=== PATIENT | female | born 1960 | race Caucasian/White ===

== ENCOUNTER 2019-07-25 14:32 | Outpatient (CLI) | payer BC ==
--- NOTE | 2019-07-25 14:59 | RAD ---
Left hand 3 views: 07/25/2019 COMPARISON: None HISTORY: Joint pain FINDINGS: No fracture or dislocation. No radiopaque foreign body or subcutaneous gas. IMPRESSION: No acute findings.
--- NOTE | 2019-07-25 15:05 | RAD ---
XR Hand Rt 3 View STANDARD HISTORY: Joint pain in the right hand FINDINGS: No fracture, bony destruction or dislocation is identified. No radiopaque body or subcutaneous gas is seen. IMPRESSION: No acute findings.
== END 2019-07-25 14:33 | disposition home or self-care (01) ==
LOC: RAD 14:32
PROVIDERS: ATTEND Nurse Practitioner Family
DX: M25.542 Pain in joints of left hand (principal); M25.541 Pain in joints of right hand

== ENCOUNTER 2019-10-23 12:40 | Outpatient (CLI) | payer BC ==
--- NOTE | 2019-10-23 12:53 | RAD ---
XR Chest Pa Lat @ [facility] HISTORY: Dyspnea COMPARISON: 03/01/2011 FINDINGS: The heart size is normal. Right-sided Port-A-Cath again seen. Postoperative changes in the left axilla are redemonstrated. The lungs are well expanded without focal areas of consolidation, pneumothorax or pleural effusions. IMPRESSION: No radiographic evidence of acute cardiopulmonary process.
== END 2019-10-23 12:41 | disposition home or self-care (01) ==
LOC: RAD 12:40
PROVIDERS: ATTEND Internal Medicine Critical Care Medicine
DX: R06.00 Dyspnea, unspecified (principal)
CPT/HCPCS: 71046

== ENCOUNTER 2020-10-24 12:15 | Outpatient (CLI) | payer BC | END 2020-10-24 12:16 | disposition home or self-care (01) | LOC: BICMRI 12:15 | PROVIDERS: ATTEND Family Medicine | DX: M54.16 Radiculopathy, lumbar region (principal) | CPT/HCPCS: 72148 ==

== ENCOUNTER 2020-11-26 09:31 | Outpatient (CLI) | payer BC ==
[2020-11-26] MEDS ORDERED: Magnevist 469MG/ML 20 ML VIAL ONE (10:15)
== END 2020-11-26 09:32 | disposition home or self-care (01) ==
LOC: BICMRI 09:31
PROVIDERS: ATTEND Specialist
DX: S22.070A Wedge compression fracture of T9-T10 vertebra, initial encounter for closed fracture (principal); M51.24 Other intervertebral disc displacement, thoracic region; M43.9 Deforming dorsopathy, unspecified; R60.0 Localized edema
CPT/HCPCS: 72157

== ENCOUNTER 2020-12-30 08:08 | Outpatient (CLI) | payer BC ==
[2020-12-30] MEDS ORDERED: Magnevist 469MG/ML 20 ML VIAL ONE (09:19)
== END 2020-12-30 08:09 | disposition home or self-care (01) ==
LOC: BICMRI 08:08
PROVIDERS: ATTEND Neurological Surgery
DX: M47.12 Other spondylosis with myelopathy, cervical region (principal); M50.10 Cervical disc disorder with radiculopathy, unspecified cervical region; M54.6 Pain in thoracic spine; M43.8X4 Other specified deforming dorsopathies, thoracic region
CPT/HCPCS: 72072; 72156; A9579

== ENCOUNTER 2021-04-28 | Emergency (ER) | payer MEDICARE | END 2021-04-28 15:32 | disposition home or self-care (01) ==

== ENCOUNTER 2021-07-04 19:39 | Observation (INO) | payer MEDICARE ==
[2021-07-04 21:00] LABS: #Basophils 0.1 thou/uL (0.0-0.2); #Eosinphils 0.1 thou/uL (0.0-0.7); #Lymphocytes 0.3 thou/uL (1.20-3.40); #Monocytes 0.1 thou/uL (0.11-0.59); #Neutrophils 3.4 thou/uL (1.40-6.50); %Basophils 1.3 % (0.0-1.0); %Lymphocytes 8.4 % (21.0-51.0); %Monocytes 1.3 % (0.0-10.0); Hemoglobin 14.1 g/dL (12.0-16.0); Mean Corpuscular HGB CONC 34.6 g/dL (32.0-36.0); Mean Corpuscular Hemoglobin 34.1 pg (27.0-31.0); Mean Corpuscular Volume 98.3 fL (78.0-98.0); Mean Platelet Volume 7.6 fL (7.4-10.4); Platelet Count 156 thou/uL (130-400); RBC Distribution Width 12.9 % (11.5-14.5); Red Blood Cell (RBC) Count 4.14 mill/uL (4.20-5.40)
[2021-07-04 21:22] LABS: ALT (SGPT) 17 U/L (8-55); AST (SGOT) 26 U/L (5-34); Albumin 3.9 g/dL (3.5-5.0); Alkaline Phosphatase 86 U/L (40-110); Anion Gap 16 mmol/L (10-20); BUN (Urea Nitrogen) 11 mg/dL (9.8-20.1); Bilirubin, Total 0.7 mg/dL (0.2-1.2); Calc. Creatinine Clearance 0 mL/min (70-130); Calcium 9.8 mg/dL (7.8-10.44); Carbon Dioxide 24 mmol/L (22-29); Chloride 99 mmol/L (98-107); Globulin 3.5 g/dL (2.4-3.5); Glucose 127 mg/dL (70-105); Potassium 4.1 mmol/L (3.5-5.1); Protein, Total 7.4 g/dL (6.0-8.3); Sodium 135 mmol/L (136-145)
[2021-07-04] MEDS ORDERED: Ondansetron PF 4 MG/2 ML Vial ONE (21:46)
[2021-07-04 23:30] LABS: Bacteria/HPF None Seen HPF (None Seen); Bilirubin Negative (Negative); Blood, Urine 1+ (Negative); Clarity Clear (Clear); Glucose, Urine (Dipstick) Normal (Negative); Ketone, Urine 10 mg/dL (Negative); Leukocyte Negative Leu/uL (Negative); Nitrite Negative (Negative); Protein, Urine (Dipstick) 10 mg/dL (Neg-Trace); Squamous Epithelial 0-3 HPF (0-3); Urobilinogen Normal mg/dL (Less than 2); WBC/HPF 0-3 HPF (0-3); pH, Urine 7.5 (5.0-9.0)
[2021-07-04] MEDS ORDERED: Aspirin Chewable 81 MG TAB ONE ×2 (23:53→23:54)
[2021-07-05] MEDS ORDERED: Acetaminophen 325 MG TAB PO PRN (01:23)
[2021-07-05] MEDS ORDERED: Ondansetron ODT 4 MG TAB PO PRN (01:23)
[2021-07-05] MEDS ORDERED: Ondansetron PF 4 MG/2 ML Vial IVP PRN (01:23)
[2021-07-05] MEDS ORDERED: Acetaminophen 650 MG Suppository PR PRN (01:23)
[2021-07-05] MEDS ORDERED: hydrALAZINE 20 MG/ML VIAL SLOW IVP PRN ×2 (01:26→09:30)
[2021-07-05 02:18] VITALS: BMI 22.0
[2021-07-05 07:10] LABS: #Lymphocytes 0.5 thou/uL (1.20-3.40); #Monocytes 0.1 thou/uL (0.11-0.59); #Neutrophils 2.9 thou/uL (1.40-6.50); %Eosinophils 1.2 % (0.0-10.0); %Lymphocytes 15.5 % (21.0-51.0); %Monocytes 1.3 % (0.0-10.0); Hemoglobin 12.9 g/dL (12.0-16.0); Mean Corpuscular HGB CONC 35.2 g/dL (32.0-36.0); Mean Corpuscular Hemoglobin 34.6 pg (27.0-31.0); Mean Corpuscular Volume 98.3 fL (78.0-98.0); Mean Platelet Volume 7.3 fL (7.4-10.4); Platelet Count 172 thou/uL (130-400); RBC Distribution Width 12.9 % (11.5-14.5); Red Blood Cell (RBC) Count 3.73 mill/uL (4.20-5.40); White Blood Cell (WBC) Count 3.5 thou/uL (4.8-10.8)
[2021-07-05 07:16] LABS: Anion Gap 5 mmol/L (10-20); BUN (Urea Nitrogen) 12 mg/dL (9.8-20.1); Calc. Creatinine Clearance 74 mL/min (70-130); Calcium 9.4 mg/dL (7.8-10.44); Carbon Dioxide 27 mmol/L (22-29); Cardiac Risk 3.6 (Less than 4.5); Chloride 103 mmol/L (98-107); Cholesterol 175 mg/dl (< 200 Desired); Glucose 116 mg/dL (70-105); HDL Cholesterol 49 mg/dL (>60 Neg Risk); LDL Cholesterol, Calculated 109 mg/dL; Potassium 4.3 mmol/L (3.5-5.1); Sodium 131 mmol/L (136-145); Triglycerides 83 mg/dL (Less than 150)
[2021-07-05] MEDS ORDERED: FLU VACC QS2021-22(6MOS UP)/PF 60 MCG/0.5 ML SYRINGE IM ONE (09:00)
[2021-07-05] MEDS ORDERED: Prevnar 13-Val Conj/PF 0.5 ML SYRINGE IM ONE (09:00)
[2021-07-05] MEDS ORDERED: Chlorhexidine Gluconate 15 ML UDCUP SSP PRN (09:26)
[2021-07-05] MEDS ORDERED: Artificial Tear Sol 15 ML BOT EA EYE PRN (09:28)
[2021-07-05] MEDS ORDERED: Bisacodyl 5 MG TAB PO PRN (09:28)
[2021-07-05] MEDS ORDERED: GUAIFENESIN SF SOLN 200 MG/10 ML UDCUP PO PRN (09:28)
[2021-07-05] MEDS ORDERED: Sodium Chloride 0.65% Nasal 44 ML BOT EA NARE PRN (09:28)
[2021-07-05] MEDS ORDERED: Cepastat Lozenges 1 LOZ PO PRN (09:28)
[2021-07-05] MEDS ORDERED: Senokot S 8.6-50 MG TAB PO PRN (09:28)
[2021-07-05] MEDS ORDERED: Hydrocerin (Eucerin) Cream 120 gm Jar TOP PRN (09:28)
[2021-07-05] MEDS ORDERED: Bisacodyl 10 MG SUPP PR PRN (09:28)
[2021-07-05] MEDS ORDERED: Loratadine 10 MG TAB PO PRN (09:28)
[2021-07-05] MEDS ORDERED: Loperamide HCl 2 MG CAP PO PRN (09:28)
[2021-07-05] MEDS ORDERED: Calcium Carbonate 500 MG ChewTAB PO PRN (09:28)
[2021-07-05] MEDS ORDERED: HYDROcodone/Acetaminophen 10/325 mg Tablet PO PRN (09:29)
[2021-07-05] MEDS: Aspirin 81 mg Enteric Coated Tablet PO SCH (10:13)
[2021-07-05] MEDS: Enoxaparin Sodium 40 MG/0.4 ML SYRINGE SC SCH (10:13)
[2021-07-05] MEDS ORDERED: Magnevist 469MG/ML 20 ML VIAL ONE (10:56)
[2021-07-05] MEDS: Cyclobenzaprine 10 MG TAB PO SCH ×3 (14:27→19:59)
[2021-07-05] MEDS: Gabapentin 300 MG CAP PO SCH ×2 (14:28→19:55)
[2021-07-05] MEDS ORDERED: CEVIMELINE HCL 30 MG PO SCH (15:00)
[2021-07-05 16:49] LABS: SARS-CoV-2 PCR by NAA Not Detected (NotDetected)
[2021-07-05] MEDS: Famotidine 20 MG TAB PO SCH (19:57)
[2021-07-05] MEDS: Propranolol 10 MG TAB PO SCH (19:58)
[2021-07-05] MEDS: Calcium Carbonate + Vit D 250 MG TAB PO SCH (19:59)
[2021-07-05] MEDS ORDERED: Atorvastatin Calcium 20 MG TAB PO SCH (21:00)
[2021-07-06] MEDS: Famotidine 20 MG TAB PO SCH (08:11)
[2021-07-06] MEDS: Aspirin 81 mg Enteric Coated Tablet PO SCH (08:11)
[2021-07-06] MEDS: Cyclobenzaprine 10 MG TAB PO SCH (08:11)
[2021-07-06] MEDS: Propranolol 10 MG TAB PO SCH (08:12)
[2021-07-06] MEDS: Gabapentin 300 MG CAP PO SCH (08:12)
[2021-07-06] MEDS: Calcium Carbonate + Vit D 250 MG TAB PO SCH (08:12)
[2021-07-06] MEDS: Enoxaparin Sodium 40 MG/0.4 ML SYRINGE SC SCH (08:14)
[2021-07-06] MEDS ORDERED: DULoxetine 60 MG CAP PO SCH (09:00)
[2021-07-06 11:42] VITALS: BP 152/88; TEMP 98
== END 2021-07-06 11:51 | disposition home or self-care (01) ==
LOC: ERS 19:39 → INTOOBSV 07-05 00:02 → 3SE 07-05 00:02
PROVIDERS: ADMIT Student in an Organized Health Care Education/Training Program; ATTEND Internal Medicine
DX: R41.82 Altered mental status, unspecified (principal); R47.01 Aphasia; E87.1 Hypo-osmolality and hyponatremia; I07.1 Rheumatic tricuspid insufficiency; C50.919 Malignant neoplasm of unspecified site of unspecified female breast; C79.52 Secondary malignant neoplasm of bone marrow; C79.2 Secondary malignant neoplasm of skin; C79.51 Secondary malignant neoplasm of bone; G89.3 Neoplasm related pain (acute) (chronic); D70.1 Agranulocytosis secondary to cancer chemotherapy; T45.1X5A Adverse effect of antineoplastic and immunosuppressive drugs, initial encounter; F32.A Depression, unspecified; F41.9 Anxiety disorder, unspecified; E78.5 Hyperlipidemia, unspecified; Z20.822 Contact with and (suspected) exposure to COVID-19; Z79.82 Long term (current) use of aspirin; Z79.899 Other long term (current) drug therapy; Z90.710 Acquired absence of both cervix and uterus; Z90.722 Acquired absence of ovaries, bilateral
CPT/HCPCS: 70450; 70553; 71045; 80048; 80053; 80061; 84484; 85025 ×2; 93005; 93306; 93880; 95712; 95816; 95819; 95957; 96372 ×2; 96374; 97139 ×3; 99285; G0378 ×3; U0003; U0005; 36415; 81003; 81015; A9579; J0360; J1642; J1650; J2405

== ENCOUNTER 2022-01-21 09:14 | Observation (INO) | payer MEDICARE ==
[2022-01-21 10:34] LABS: Hemoglobin 13.2 g/dL (12.0-16.0); Mean Corpuscular HGB CONC 34.1 g/dL (32.0-36.0); Mean Corpuscular Hemoglobin 32.1 pg (27.0-31.0); Mean Platelet Volume 6.2 fL (7.4-10.4); Platelet Count 295 thou/uL (130-400); RBC Distribution Width 13.5 % (11.5-14.5); Red Blood Cell (RBC) Count 4.11 mill/uL (4.20-5.40); White Blood Cell (WBC) Count 2.9 thou/uL (4.8-10.8)
[2022-01-21 10:45] LABS: ALT (SGPT) 32 U/L (8-55); AST (SGOT) 66 U/L (5-34); Albumin 3.6 g/dL (3.5-5.0); Alkaline Phosphatase 153 U/L (40-110); Anion Gap 12 mmol/L (10-20); BUN (Urea Nitrogen) 10 mg/dL (9.8-20.1); Bilirubin, Total 0.5 mg/dL (0.2-1.2); Calc. Creatinine Clearance 0 mL/min (70-130); Carbon Dioxide 23 mmol/L (22-29); Chloride 102 mmol/L (98-107); Globulin 3.5 g/dL (2.4-3.5); Glucose 89 mg/dL (70-105); Magnesium 2.1 mg/dL (1.6-2.6); Potassium 4.2 mmol/L (3.5-5.1); Protein, Total 7.1 g/dL (6.0-8.3); Sodium 133 mmol/L (136-145)
[2022-01-21 11:02] LABS: Band 10 % (5-11); Lymphocytes 20 % (21-51); MDiff Complete? YES; Metamyelocyte 1 % (0-0); Monocytes 9 % (0-10); Neutrophil 54 % (42-75); Platelet Morphology Comment Appears Adequate; Polychromasia SLIGHT = 2-3 cells (100X) (0-2/hpf); Reactive Lymphocytes 4 % (0-10)
[2022-01-21 11:52] LABS: Bilirubin Negative (Negative); Blood, Urine Negative (Negative); Clarity Clear (Clear); Glucose, Urine (Dipstick) Normal (Negative); Ketone, Urine Negative (Negative); Leukocyte Negative Leu/uL (Negative); Nitrite Negative (Negative); Protein, Urine (Dipstick) Negative (Neg-Trace); Specific Gravity, Urine 1.022 (1.002-1.036); Urobilinogen Normal mg/dL (Less than 2)
[2022-01-21 13:38] LABS: INR-International Normal Ratio 1.1; Prothrombin Time 14.1 sec (12.0-14.7)
[2022-01-21 13:39] LABS: PTT 36.9 sec (22.9-36.1)
[2022-01-21] MEDS ORDERED: HYDROmorphone 0.5 MG/0.5 ML SYRINGE ONE (16:52)
[2022-01-21] MEDS ORDERED: Ondansetron PF 4 MG/2 ML Vial IVP PRN (22:00)
[2022-01-21] MEDS ORDERED: Ondansetron ODT 4 MG TAB SL PRN (22:00)
[2022-01-21] MEDS ORDERED: Acetaminophen 325 MG TAB PO PRN (22:00)
[2022-01-21] MEDS ORDERED: Morphine 4 MG/ML VIAL SLOW IVP PRN (22:14)
[2022-01-21] MEDS ORDERED: Acetaminophen 650 MG Suppository PR PRN (22:15)
[2022-01-21 22:20] VITALS: BMI 21.7
[2022-01-22] MEDS ORDERED: Dicyclomine 20 MG TAB PO PRN (04:17)
[2022-01-22 04:27] LABS: Anion Gap 12 mmol/L (10-20); BUN (Urea Nitrogen) 9 mg/dL (9.8-20.1); Calc. Creatinine Clearance 70 mL/min (70-130); Calcium 9.4 mg/dL (7.8-10.44); Carbon Dioxide 28 mmol/L (22-29); Chloride 98 mmol/L (98-107); Glucose 103 mg/dL (70-105); Potassium 3.8 mmol/L (3.5-5.1); Sodium 134 mmol/L (136-145)
[2022-01-22 04:57] LABS: Band 14 % (5-11); Lymphocytes 8 % (21-51); MDiff Complete? YES; Mean Corpuscular HGB CONC 33.6 g/dL (32.0-36.0); Mean Corpuscular Hemoglobin 31.7 pg (27.0-31.0); Mean Corpuscular Volume 94.2 fL (78.0-98.0); Mean Platelet Volume 6.3 fL (7.4-10.4); Metamyelocyte 2 % (0-0); Neutrophil 76 % (42-75); Platelet Count 251 thou/uL (130-400); Platelet Morphology Comment Appears Adequate; RBC Distribution Width 13.6 % (11.5-14.5); RBC Morphology Normal; White Blood Cell (WBC) Count 2.1 thou/uL (4.8-10.8)
[2022-01-22] MEDS ORDERED: Enoxaparin Sodium 40 MG/0.4 ML SYRINGE SC SCH (09:00)
[2022-01-22] MEDS ORDERED: DULoxetine 60 MG CAP PO SCH (09:00)
[2022-01-22] MEDS ORDERED: buPROPion 75 MG TAB PO SCH (09:00)
[2022-01-22] MEDS ORDERED: CEVIMELINE HCL 30 MG PO SCH (09:00)
[2022-01-22] MEDS ORDERED: Aspirin 81 mg Enteric Coated Tablet PO SCH (09:00)
[2022-01-22] MEDS ORDERED: Propranolol 10 MG TAB PO SCH (09:00)
[2022-01-22] MEDS ORDERED: Loperamide HCl 2 MG CAP PO SCH (09:00)
[2022-01-22] MEDS ORDERED: HYDROcodone/Acetaminophen 10/325 mg Tablet PO SCH (09:00)
[2022-01-22] MEDS: Cyclobenzaprine 10 MG TAB PO SCH ×2 (09:30→15:56)
[2022-01-22] MEDS: Gabapentin 300 MG CAP PO SCH ×2 (09:30→15:56)
[2022-01-22] MEDS: METHadone HCl 10 MG TAB PO SCH ×2 (09:50→15:55)
[2022-01-22 11:45] LABS: SARS-CoV-2 PCR by NAA Not Detected (NotDetected)
[2022-01-22 17:43] VITALS: BP 92/52; TEMP 98.2
== END 2022-01-22 18:15 | disposition home or self-care (01) ==
LOC: ERS 09:14 → 2NO 17:59
PROVIDERS: ADMIT Internal Medicine; ATTEND Internal Medicine
DX: S24.104A Unspecified injury at T11-T12 level of thoracic spinal cord, initial encounter (principal); S22.081A Stable burst fracture of T11-T12 vertebra, initial encounter for closed fracture; C50.912 Malignant neoplasm of unspecified site of left female breast; C78.7 Secondary malignant neoplasm of liver and intrahepatic bile duct; C79.51 Secondary malignant neoplasm of bone; E87.1 Hypo-osmolality and hyponatremia; D72.819 Decreased white blood cell count, unspecified; I10 Essential (primary) hypertension; M43.12 Spondylolisthesis, cervical region; M48.02 Spinal stenosis, cervical region; R91.1 Solitary pulmonary nodule; M84.48XA Pathological fracture, other site, initial encounter for fracture; M48.061 Spinal stenosis, lumbar region without neurogenic claudication; M51.36 Other intervertebral disc degeneration, lumbar region; M47.816 Spondylosis without myelopathy or radiculopathy, lumbar region; Z79.82 Long term (current) use of aspirin; Z79.891 Long term (current) use of opiate analgesic; Z79.899 Other long term (current) drug therapy; Z98.890 Other specified postprocedural states; Z20.822 Contact with and (suspected) exposure to COVID-19; W18.30XA Fall on same level, unspecified, initial encounter; Y92.000 Kitchen of unspecified non-institutional (private) residence as the place of occurrence of the external cause
CPT/HCPCS: 70450; 71260; 72125; 72157; 72158; 74177; 80048; 80053; 81003; 83735; 84484; 85025 ×2; 85610; 85730; 86900; 86901; 93005; 97116; 97139 ×3; 97530; U0003; U0005; 36415; 96372; G0378; G0390; J1170; J1650

== ENCOUNTER 2022-02-23 12:38 | Inpatient (IN) | payer MEDICARE ==
[2022-02-23 14:00] LABS: Hemoglobin 10.6 g/dL (12.0-16.0); Mean Corpuscular HGB CONC 34.6 g/dL (32.0-36.0); Mean Corpuscular Hemoglobin 31.9 pg (27.0-31.0); Mean Corpuscular Volume 92.1 fL (78.0-98.0); Mean Platelet Volume 7.4 fL (7.4-10.4); Platelet Count 208 thou/uL (130-400); RBC Distribution Width 14.7 % (11.5-14.5); Red Blood Cell (RBC) Count 3.34 mill/uL (4.20-5.40); White Blood Cell (WBC) Count 0.9 thou/uL (4.8-10.8)
[2022-02-23 14:25] LABS: Band 1 % (5-11); Lymphocytes 77 % (21-51); MDiff Complete? YES; Monocytes 16 % (0-10); Neutrophil 4 % (42-75); Ovalocytes SLIGHT = 2-5 cells (100X) (0-1/hpf); Platelet Morphology Comment Appears Adequate; Polychromasia SLIGHT = 2-3 cells (100X) (0-2/hpf)
[2022-02-23 15:15] LABS: Bilirubin Negative (Negative); Blood, Urine Negative (Negative); Clarity Clear (Clear); Glucose, Urine (Dipstick) Normal (Negative); Ketone, Urine Negative (Negative); Leukocyte Negative Leu/uL (Negative); Nitrite Negative (Negative); Protein, Urine (Dipstick) Negative (Neg-Trace); Specific Gravity, Urine 1.003 (1.002-1.036); Urobilinogen Normal mg/dL (Less than 2); pH, Urine 7.5 (5.0-9.0)
[2022-02-23] MEDS ORDERED: Cefepime 2 GM VIAL ONE (15:33)
[2022-02-23] MEDS ORDERED: Vancomycin 1 GM/200 ML BAG ONE (16:21)
[2022-02-23 16:28] LABS: ALT (SGPT) 39 U/L (8-55); AST (SGOT) 78 U/L (5-34); Albumin 3.3 g/dL (3.5-5.0); Alkaline Phosphatase 122 U/L (40-110); Anion Gap 13 mmol/L (10-20); BUN (Urea Nitrogen) 6 mg/dL (9.8-20.1); Bilirubin, Total 1.3 mg/dL (0.2-1.2); Calc. Creatinine Clearance 0 mL/min (70-130); Calcium 9.2 mg/dL (7.8-10.44); Carbon Dioxide 25 mmol/L (22-29); Chloride 98 mmol/L (98-107); Globulin 3.5 g/dL (2.4-3.5); Glucose 103 mg/dL (70-105); Potassium 3.4 mmol/L (3.5-5.1); Protein, Total 6.8 g/dL (6.0-8.3); Sodium 133 mmol/L (136-145)
[2022-02-23] MEDS ORDERED: Potassium Chloride 40 MEQ in Premix Bag 1 BAG IVPB SCH (17:30)
[2022-02-23] MEDS ORDERED: HYDROcodone/Acetaminophen 5/325 mg Tablet PO PRN ×2 (18:54→18:57)
[2022-02-23 19:11] VITALS: BMI 21.4
[2022-02-23] MEDS: Sodium Chloride 0.9% 1,000 ML IV SCH (19:53)
[2022-02-23] MEDS: Vancomycin HCl 750 MG in Sodium Chloride 0.9% 250 ML 250 ML IVPB SCH (20:53)
[2022-02-23] MEDS ORDERED: Vancomycin 1 GM in Premix Bag 1 BAG IVPB SCH (21:00)
[2022-02-23] MEDS ORDERED: Cyclobenzaprine 10 MG TAB PO SCH (22:45)
[2022-02-23] MEDS ORDERED: Gabapentin 300 MG CAP PO SCH (22:45)
[2022-02-23] MEDS ORDERED: Propranolol 10 MG TAB PO SCH (22:45)
[2022-02-23] MEDS ORDERED: METHadone HCl 10 MG TAB PO SCH (22:45)
[2022-02-24] MEDS: Cefepime 1 GM in Sodium Chloride 0.9% 100 ML IVPB SCH ×2 (03:03→15:06)
[2022-02-24 06:10] LABS: Hemoglobin 9.7 g/dL (12.0-16.0); Hypochromia SLIGHT = 6-15 cells (100X) (0-5/hpf); Lymphocytes 45 % (21-51); MDiff Complete? YES; Mean Corpuscular HGB CONC 34.5 g/dL (32.0-36.0); Mean Corpuscular Volume 92.8 fL (78.0-98.0); Monocytes 40 % (0-10); Neutrophil 15 % (42-75); Platelet Count 189 thou/uL (130-400); Platelet Morphology Comment Appears Adequate; RBC Distribution Width 14.4 % (11.5-14.5); Red Blood Cell (RBC) Count 3.04 mill/uL (4.20-5.40); White Blood Cell (WBC) Count 1.3 thou/uL (4.8-10.8)
[2022-02-24 06:16] LABS: ALT (SGPT) 33 U/L (8-55); AST (SGOT) 66 U/L (5-34); Albumin 2.8 g/dL (3.5-5.0); Alkaline Phosphatase 105 U/L (40-110); Anion Gap 11 mmol/L (10-20); BUN (Urea Nitrogen) 5 mg/dL (9.8-20.1); Bilirubin, Total 1.1 mg/dL (0.2-1.2); Calc. Creatinine Clearance 88 mL/min (70-130); Calcium 8.3 mg/dL (7.8-10.44); Carbon Dioxide 25 mmol/L (22-29); Chloride 104 mmol/L (98-107); Glucose 81 mg/dL (70-105); Potassium 3.5 mmol/L (3.5-5.1); Protein, Total 5.8 g/dL (6.0-8.3); Sodium 136 mmol/L (136-145)
[2022-02-24] MEDS: Gabapentin 300 MG CAP PO SCH ×3 (08:42→22:15)
[2022-02-24] MEDS: Propranolol 10 MG TAB PO SCH ×2 (08:43→22:17)
[2022-02-24] MEDS: Vancomycin HCl 750 MG in Sodium Chloride 0.9% 250 ML 250 ML IVPB SCH ×2 (08:43→20:59)
[2022-02-24] MEDS ORDERED: Ondansetron PF 4 MG/2 ML Vial IVP PRN (08:56)
[2022-02-24] MEDS ORDERED: GUAIFENESIN SF SOLN 200 MG/10 ML UDCUP PO PRN (08:56)
[2022-02-24] MEDS ORDERED: Zolpidem Tartrate 5 MG TAB PO PRN (08:56)
[2022-02-24] MEDS ORDERED: hydrALAZINE 20 MG/ML VIAL SLOW IVP PRN (08:56)
[2022-02-24] MEDS ORDERED: Moisturizing Cream (Eucerin) 113 GM JAR TOP PRN (08:56)
[2022-02-24] MEDS ORDERED: Cepastat Lozenges 1 LOZ PO PRN (08:56)
[2022-02-24] MEDS ORDERED: Sodium Chloride 0.65% Nasal 44 ML BOT EA NARE PRN (08:56)
[2022-02-24] MEDS ORDERED: Ondansetron ODT 4 MG TAB SL PRN (08:56)
[2022-02-24] MEDS ORDERED: Artificial Tear Sol 15 ML BOT EA EYE PRN (08:56)
[2022-02-24] MEDS ORDERED: Calcium Carbonate 500 MG ChewTAB PO PRN (08:56)
[2022-02-24] MEDS ORDERED: Loperamide HCl 2 MG CAP PO PRN (08:56)
[2022-02-24] MEDS ORDERED: Senokot S 8.6-50 MG TAB PO PRN (08:56)
[2022-02-24] MEDS ORDERED: CEVIMELINE HCL 30 MG PO SCH (09:00)
[2022-02-24] MEDS ORDERED: METHadone HCl 10 MG TAB PO SCH (09:00)
[2022-02-24] MEDS ORDERED: DULoxetine 60 MG CAP PO SCH (09:00)
[2022-02-24] MEDS ORDERED: Lorazepam 2 MG/ML VIAL SLOW IVP SCH (09:30)
[2022-02-24] MEDS: Bupropion 150 MG XL TAB PO SCH (09:51)
[2022-02-24] MEDS ORDERED: Gadobenate Dimeglumine 529 MG/1 ML (20ML VIAL) ONE (11:52)
[2022-02-24] MEDS: Sodium Chloride 0.9% 1,000 ML IV SCH ×3 (14:27→21:16)
[2022-02-24] MEDS ORDERED: Sodium Chloride 0.9% 500 ML IV SCH (15:00)
[2022-02-24] MEDS: Cyclobenzaprine 10 MG TAB PO SCH (22:14)
[2022-02-24] MEDS: Aspirin 81 mg Enteric Coated Tablet PO SCH (22:14)
[2022-02-24] MEDS: METHadone HCl 10 MG TAB PO SCH (22:16)
[2022-02-25] MEDS: METHadone HCl 10 MG TAB PO SCH ×3 (01:05→22:27)
[2022-02-25] MEDS: Aspirin 81 mg Enteric Coated Tablet PO SCH ×2 (01:12→20:00)
[2022-02-25] MEDS: Gabapentin 300 MG CAP PO SCH ×5 (01:12→22:27)
[2022-02-25] MEDS: Cyclobenzaprine 10 MG TAB PO SCH ×2 (01:12→20:00)
[2022-02-25] MEDS: Propranolol 10 MG TAB PO SCH ×3 (02:00→11:41)
[2022-02-25] MEDS: Cefepime 1 GM in Sodium Chloride 0.9% 100 ML IVPB SCH ×2 (03:53→15:48)
[2022-02-25 06:08] LABS: Hemoglobin 10.3 g/dL (12.0-16.0); Hypochromia SLIGHT = 6-15 cells (100X) (0-5/hpf); Lymphocytes 40 % (21-51); MDiff Complete? YES; Mean Corpuscular HGB CONC 34.7 g/dL (32.0-36.0); Mean Corpuscular Hemoglobin 31.8 pg (27.0-31.0); Mean Corpuscular Volume 91.6 fL (78.0-98.0); Mean Platelet Volume 6.8 fL (7.4-10.4); Monocytes 5 % (0-10); Neutrophil 15 % (42-75); Platelet Count 242 thou/uL (130-400); Platelet Morphology Comment Appears Adequate; RBC Distribution Width 14.5 % (11.5-14.5); Reactive Lymphocytes 40 % (0-10); Red Blood Cell (RBC) Count 3.22 mill/uL (4.20-5.40); White Blood Cell (WBC) Count 1.2 thou/uL (4.8-10.8)
[2022-02-25 06:11] LABS: ALT (SGPT) 34 U/L (8-55); AST (SGOT) 68 U/L (5-34); Alkaline Phosphatase 109 U/L (40-110); Anion Gap 11 mmol/L (10-20); BUN (Urea Nitrogen) 6 mg/dL (9.8-20.1); Bilirubin, Total 1.3 mg/dL (0.2-1.2); Calc. Creatinine Clearance 80 mL/min (70-130); Calcium 8.5 mg/dL (7.8-10.44); Carbon Dioxide 24 mmol/L (22-29); Chloride 102 mmol/L (98-107); Globulin 3.3 g/dL (2.4-3.5); Glucose 77 mg/dL (70-105); Magnesium 1.6 mg/dL (1.6-2.6); Phosphorus 2.9 mg/dL (2.3-4.7); Potassium 3.3 mmol/L (3.5-5.1); Protein, Total 6.3 g/dL (6.0-8.3); Sodium 134 mmol/L (136-145)
[2022-02-25] MEDS: Sodium Chloride 0.9% 1,000 ML IV SCH ×2 (06:19→15:44)
[2022-02-25 08:03] LABS: Vancomycin, Trough 10.5 ug/mL
[2022-02-25] MEDS ORDERED: Potassium Chloride 20 MEQ TAB PO SCH (09:00)
[2022-02-25] MEDS ORDERED: Potassium Chloride 20 MEQ in Premix Bag 1 BAG IVPB SCH (10:00)
[2022-02-25] MEDS: Vancomycin HCl 750 MG in Sodium Chloride 0.9% 250 ML 250 ML IVPB SCH ×2 (10:55→20:00)
[2022-02-25] MEDS: DULoxetine 60 MG CAP PO SCH ×2 (11:03→11:41)
[2022-02-25] MEDS: Bupropion 150 MG XL TAB PO SCH ×2 (11:07→11:41)
[2022-02-25] MEDS ORDERED: Morphine 2 MG/ML VIAL SLOW IVP PRN (17:18)
[2022-02-26] MEDS: Cefepime 1 GM in Sodium Chloride 0.9% 100 ML IVPB SCH (03:45)
[2022-02-26 08:55] VITALS: TEMP 98.2
[2022-02-26 09:03] VITALS: BP 151/95
[2022-02-26] MEDS: Bupropion 150 MG XL TAB PO SCH (09:13)
[2022-02-26] MEDS: Gabapentin 300 MG CAP PO SCH ×2 (09:29→09:47)
[2022-02-26] MEDS: DULoxetine 60 MG CAP PO SCH (09:29)
[2022-02-26] MEDS: METHadone HCl 10 MG TAB PO SCH (09:31)
[2022-02-26] MEDS: Propranolol 10 MG TAB PO SCH (09:32)
[2022-02-26 09:46] LABS: Vancomycin, Trough 4.6 ug/mL
[2022-02-26] MEDS: Vancomycin HCl 750 MG in Sodium Chloride 0.9% 250 ML 250 ML IVPB SCH (09:48)
[2022-02-26] MEDS: Sodium Chloride 0.9% 1,000 ML IV SCH (12:29)
== END 2022-02-26 14:15 | disposition hospice, home (50) | DRG 808 ==
LOC: ERS 12:38 → MSONC 16:33
PROVIDERS: ADMIT Internal Medicine; ATTEND Internal Medicine
DX: D70.1 Agranulocytosis secondary to cancer chemotherapy (principal); Z66 Do not resuscitate; Z51.5 Encounter for palliative care; Z20.822 Contact with and (suspected) exposure to COVID-19; G92.8 Other toxic encephalopathy; C79.51 Secondary malignant neoplasm of bone; C78.7 Secondary malignant neoplasm of liver and intrahepatic bile duct; T40.2X5A Adverse effect of other opioids, initial encounter; I10 Essential (primary) hypertension; F41.9 Anxiety disorder, unspecified; F32.A Depression, unspecified; E78.5 Hyperlipidemia, unspecified; G89.3 Neoplasm related pain (acute) (chronic); C50.919 Malignant neoplasm of unspecified site of unspecified female breast; T45.1X5A Adverse effect of antineoplastic and immunosuppressive drugs, initial encounter; R49.22 Hyponasality; E87.6 Hypokalemia; G45.4 Transient global amnesia; Z79.82 Long term (current) use of aspirin; Z79.899 Other long term (current) drug therapy; Z90.722 Acquired absence of ovaries, bilateral; Z98.890 Other specified postprocedural states
CPT/HCPCS: 36415; 70450; 70552; 71045; 80053; 80202; 81003; 82140; 83605; 83735; 84100; 84484; 85025; 87040; 87086; 93005; 96361; 96365; 96367; A9577; J0692; J1642; J2060; J2270; J3370; J3480; J3490; J7030; J7050; U0003; U0005